=== PATIENT | female | born 1995 | race African-American/Black ===

== ENCOUNTER 2018-04-25 23:18 | Emergency (ER) | payer MEDICAID ==
[~2018-04-25] VITALS: Ht 157.5 cm; Wt 80.5 kg
[2018-04-25 23:26] VITALS: BP 156/91
--- NOTE | 2018-04-25 23:31 | NUR ---
22/F CAME IN STATES SHE IS FEELING ANXIOUS AND SHE WAS UPSET. REPORTS SHE IS TRANSIENT AND IS HAVING TRANSPORTATION PROBLEMS. PT DENIES SI/HI, DENIES AUDITORY/VISUAL HALLUCINATIONS. PMH: BIPOLAR DO
--- NOTE | 2018-04-25 23:31 | NUR ---
PT AMBULATED TO BED 5
--- NOTE | 2018-04-25 23:35 | NUR ---
[employer] CALLED FOR PSYCH EVALUTATION
--- NOTE | 2018-04-25 23:41 | NUR ---
Dr. Bacon evaluating patient at bedside.
[2018-04-25] MEDS: diphenhydrAMINE 50 MG CAP PO ONE (23:52)
[2018-04-25] MEDS ORDERED: ARIPiprazole 10 MG TAB ONE (23:59)
[2018-04-26] MEDS: ARIPiprazole 10 MG TAB PO SCH (00:01)
--- NOTE | 2018-04-26 00:34 | NUR ---
[place] [employer] EVALUATING PT AT BEDSIDE.
--- NOTE | 2018-04-26 00:43 | NUR ---
PER [employer] [employer] OFFICER PT DOESNT MEET [facility] FOR [address] HOLD D/T PT DENIES HAVING SUICIDAL THOUGHS AND STATES JUST SAID THAT SHE HAD SUICIDAL THOUGHTS SO SHE COULD HAVE A PLACE TO SLEEP.
--- NOTE | 2018-04-26 02:00 | NUR ---
Patient appears to be resting comfortably in bed. Vital Signs within normal limits. Respirations even and unlabored.
--- NOTE | 2018-04-26 04:00 | NUR ---
Patient appears to be resting comfortably in bed. Respirations even and unlabored.
--- NOTE | 2018-04-26 06:41 | NUR ---
Patient appears to be resting comfortably in bed. Vital Signs within normal limits. Respirations even and unlabored.
--- NOTE | 2018-04-26 07:16 | NUR ---
Pt report given to AGAPITO TROY. Transfer of care at this time.
--- NOTE | 2018-04-26 07:19 | NUR ---
RECEIVED REPORT FROM LIANG TROY FOR CONTINUITY OF CARE. PT APPEARS TO BE SLEEPING IN NO APPARENT DISTRESS. RESPIRATIONS EVEN AND UNLABORED.
--- NOTE | 2018-04-26 07:45 | NUR ---
TONE REGULATOR CALLED FOR CONSULT PER DR SANTILLAN. L/M
--- NOTE | 2018-04-26 08:33 | NUR ---
SECRETARY OF STATE CALLING [employer]TER FOR CONSULT PER DR SANTILLAN. PT APPEARS TO BE SLEEPING. RESPIRATIONS EVEN AND UNLABORED
--- NOTE | 2018-04-26 08:40 | NUR ---
[employer]YE TUB TENDER AT BEDSIDE
--- NOTE | 2018-04-26 09:05 | NUR ---
PT PROVIDED WITH BUS PASS
[2018-04-26 09:06] VITALS: BP 114/63
--- NOTE | 2018-04-26 09:06 | NUR ---
Patient discharged with v/s stable. Written and verbal after care instructions given and explained. Patient verbalized understanding. Ambulatory with steady gait. All questions addressed prior to discharge. Advised to follow up with PMD.
--- NOTE | 2018-04-27 16:56 | NUR ---
Social Service Note: Note for 04/26/18: I met with patient at bedside. Per patient, she lives at home with her grandfather Avila and plans to return there upon discharge. I verified with her, her home address address listed on face sheet. She stated she does not have transportation to return home, RN to follow up regarding transportation.
== END 2018-04-26 09:06 | disposition home or self-care (01) ==
LOC: MED 23:18
DX: F41.9 Anxiety disorder, unspecified (principal); R45.851 Suicidal ideations; E11.9 Type 2 diabetes mellitus without complications; F31.9 Bipolar disorder, unspecified; Z87.891 Personal history of nicotine dependence
CPT/HCPCS: 81002; 81025; 99284; Q0163

== ENCOUNTER 2018-04-27 02:45 | Emergency (ER) | payer MEDICAID ==
[~2018-04-27] VITALS: Ht 157.5 cm; Wt 80.9 kg
[2018-04-27 02:45] VITALS: BP 140/79
--- NOTE | 2018-04-27 04:02 | NUR ---
pt to er bed 10
--- NOTE | 2018-04-27 04:05 | NUR ---
22/F CAME IN ED, C/O ANXIETY, PT STATED "I CAN'T GO HOME RIGHT NOW UNTIL I GET MY LIFE TOGETHER." PT DENIES SI, HI, VISUAL/AUDITORY HALLUCINATIONS. PT REPORTS BEING UNCOMPLIANT WITH RX MEDS ABILIFY AND BENADRYL. PT AAOX4, PERRL, WITH EVEN AND STEADY GAIT; LUNGS CLEAR BL, BREATHING UNLABORED; HR EVEN AND REGULAR, BL PERIPHERAL PULSES PRESENT; BS ACTIVE X4, NO TENDERNESS TO PALPATION; PT DENIES ANY FEVER, CP, SOB, N/V/D, OR COUGH AT THIS TIME; PT STATES 0/10 PAIN AT THIS TIME; VSS; PATIENT POSITIONED FOR COMFORT; HOB ELEVATED; BEDRAILS UP X2; BED DOWN.
--- NOTE | 2018-04-27 05:08 | NUR ---
Dr. Tapia evaluating patient.
--- NOTE | 2018-04-27 05:24 | NUR ---
PT RESTING COMFORTABLY IN BED, RR EVEN AND UNLABORED. ALL NEEDS MET AT THIS TIME.
--- NOTE | 2018-04-27 06:00 | NUR ---
[employer] PROVIDED, BUS PASS PROVIDED
[2018-04-27 06:01] VITALS: BP 138/82
--- NOTE | 2018-04-27 06:01 | NUR ---
Patient discharged with v/s stable. Written and verbal after care instructions given and explained. Patient alert, oriented and verbalized understanding of instructions. Ambulatory with steady gait. All questions addressed prior to discharge. ID band removed. Patient advised to follow up with PMD. OTC BENADRYL 25MG ADVISED. Patient educated on indication of medication including possible reaction and side effects. Opportunity to ask questions provided and answered.
== END 2018-04-27 06:01 | disposition home or self-care (01) ==
LOC: MED 02:45
DX: F41.9 Anxiety disorder, unspecified (principal); F32.9 Major depressive disorder, single episode, unspecified; F31.9 Bipolar disorder, unspecified
CPT/HCPCS: 99284